=== PATIENT | female | born 1995 | race African-American/Black ===

== ENCOUNTER 2019-01-17 23:08 | Emergency (ER) | payer BC, MEDICAID ==
[2019-01-17] MEDS ORDERED: OXYCODONE-ACETAMINOPHEN 5-325 MG TABLET PO ONE (23:42)
[2019-01-17] MEDS ORDERED: METOCLOPRAMIDE HCL 10 MG TABLET PO ONE (23:42)
--- NOTE | 2019-01-17 23:46 | ER Document Report ---
ED Medical Screen (RME) - General Chief Complaint: Bloody Stools Stated Complaint: HEADACHE,NAUSEA,BLOOD IN STOOL Time Seen by Provider: 01/17/19 23:41 Primary Care Provider: MICHAEL MAHMOOD [Primary Care Provider] - Follow up as needed Notes: 23-year-old -[place] female with multiple symptoms. Recently arrived back home from [facility] where she was in [place]inclusive resort partaking of free alcohol. Complaining of headache, nausea, blood in her stool, stomach pain, frequent stools, blurred vision in the left eye. Patient reports history of GI ulcer secondary to H. pylori in the past. I have treated and performed a rapid initial assessment of this patient. A comprehensive ED assessment and evaluation of the patient, analysis of test results and completion of medical decision making process will be conducted by additional ED providers. PHYSICAL EXAMINATION: GENERAL: Nontoxic-appearing LUNGS: Breath sounds clear to auscultation bilaterally and equal. No wheezes rales or rhonchi. HEART: Regular rate and rhythm without murmurs, rubs, gallops. Extremities: No cyanosis, clubbing, or edema b/l. NEUROLOGICAL: Normal speech, normal gait. PSYCH: Normal mood, normal affect. TRAVEL OUTSIDE OF THE [place] IN LAST 30 DAYS: No Physical Exam - Vital signs Vitals: Temp Pulse Resp BP Pulse Ox 98.7 F 81 24 H 134/87 H 100 01/17/19 23:16 01/17/19 23:16 01/17/19 23:16 01/17/19 23:16 01/17/19 23:16 Course - Vital Signs Vital signs: Temp Pulse Resp BP Pulse Ox 98.7 F 81 24 H 134/87 H 100 01/17/19 23:16 01/17/19 23:16 01/17/19 23:16 01/17/19 23:16 01/17/19 23:16 Doctor's Discharge - Discharge Referrals: MICHAEL MAHMOOD [Primary Care Provider] - Follow up as needed
[2019-01-18 00:31] LABS: ABSOLUTE EOSINOPHILS # (AUTO) 0.2 10^3/uL (0.0-0.6); ABSOLUTE LYMPHOCYTES (AUTO) 1.6 10^3/uL (0.5-4.7); ABSOLUTE MONOCYTES (AUTO) 0.3 10^3/uL (0.1-1.4); ABSOLUTE NEUT (AUTO) 1.5 10^3/uL (1.7-8.2); BASOPHILS % (AUTO) 0.3 % (0-2); EOSINOPHILS % (AUTO) 5.2 % (0-6); HEMATOCRIT 40.6 % (36.0-47.0); HEMOGLOBIN 13.3 g/dL (12.0-15.5); LYMPHOCYTES % (AUTO) 44.8 % (13-45); MEAN CORPUSCULAR HEMOGLOBIN 29.7 pg (27.0-33.4); MEAN CORPUSCULAR HGB CONC 32.8 g/dL (32.0-36.0); MEAN CORPUSCULAR VOLUME 91 fl (80-97); MONOCYTES % (AUTO) 7.9 % (3-13); PLATELET COUNT 206 10^3/uL (150-450); RED BLOOD COUNT 4.47 10^6/uL (3.72-5.28); RED CELL DISTRIBUTION WIDTH 12.6 % (11.5-14.0); SEGMENTED NEUTROPHILS % (AUTO) 41.8 % (42-78); TOTAL CELLS COUNTED % (AUTO) 100 %; WHITE BLOOD COUNT 3.6 10^3/uL (4.0-10.5)
[2019-01-18 00:36] LABS: APPEARANCE,URINE CLEAR; BILIRUBIN,URINE NEGATIVE (NEGATIVE); COLOR,URINE COLORLESS; GLUCOSE, URINE NEGATIVE (NEGATIVE); KETONES,URINE NEGATIVE (NEGATIVE); LEUKOCYTE ESTERASE,URINE NEGATIVE (NEGATIVE); NITRITE,URINE NEGATIVE (NEGATIVE); PROTEIN,URINE NEGATIVE (NEGATIVE); URINE SPECIFIC GRAVITY 1.002; UROBILINOGEN,URINE NEGATIVE mg/dL (<2.0)
[2019-01-18 01:07] LABS: ALANINE AMINOTRANSFERASE 22 U/L (9-52); ALBUMIN 3.9 g/dL (3.5-5.0); ALKALINE PHOSPHATASE 51 U/L (38-126); ANION GAP 10 (5-19); ASPARTATE AMINO TRANSFERASE 22 U/L (14-36); BILIRUBIN,DIRECT 0.2 mg/dL (0.0-0.4); BILIRUBIN,TOTAL 0.2 mg/dL (0.2-1.3); BLOOD UREA NITROGEN 9 mg/dL (7-20); CALCIUM 9.2 mg/dL (8.4-10.2); CARBON DIOXIDE 26 mmol/L (22-30); CHLORIDE 104 mmol/L (98-107); GLUCOSE 114 mg/dL (75-110); LIPASE 55.4 U/L (23-300); POTASSIUM 4.1 mmol/L (3.6-5.0); SODIUM 139.5 mmol/L (137-145); TOTAL PROTEIN 7.1 g/dL (6.3-8.2)
[2019-01-18] MEDS ORDERED: ONDANSETRON ODT 4 MG TAB (6 TAB/ER DISP) PO PRN (02:40)
--- NOTE | 2019-01-18 02:41 | ER Document Report ---
ED General - General Chief Complaint: Bloody Stools Stated Complaint: HEADACHE,NAUSEA,BLOOD IN STOOL Time Seen by Provider: 01/17/19 23:41 Primary Care Provider: MICHAEL MAHMOOD [Primary Care Provider] - Follow up as needed Notes: Patient is a 23-year-old female without chronic medical problems, presents with 24 hours of diarrhea, and after multiple episodes of diarrhea had a small amount of bright red blood in her stool. The patient also reports that she is been somewhat nauseated, has had a global headache and some intermittent blurring of her vision as well as photophobia. Symptoms started gradually, have been relatively unchanged since onset. Lights worsen her headache and visual changes. Denies focal abdominal pain but states that she has had some generalized, aching, cramping discomfort. No history of similar symptoms in the past. Has not seen her general physician regarding today's concerns. Denies fever or constitutional symptoms. Denies focal weakness, numbness or confusion. TRAVEL OUTSIDE OF THE [place] IN LAST 30 DAYS: No - Related Data Allergies/Adverse Reactions: Penicillins Allergy (Verified 01/18/19 00:29) Past Medical History - General Information source: Patient - Social History Smoking Status: Never Smoker Frequency of alcohol use: Occasional Drug Abuse: None Lives with: Family Family History: Reviewed & Not Pertinent Patient has suicidal ideation: No Patient has homicidal ideation: No Renal/ Medical History: Denies: Hx Peritoneal Dialysis Review of Systems - Review of Systems Notes: Constitutional: Negative for fever. HENT: Negative for sore throat. Eyes: Positive for photophobia, blurring of vision Cardiovascular: Negative for chest pain. Respiratory: Negative for shortness of breath. Gastrointestinal: Positive for abdominal cramping, nausea, diarrhea, hematochezia Genitourinary: Negative for dysuria. Musculoskeletal: Negative for back pain. Skin: Negative for rash. Neurological: Positive for headache 10 point ROS negative except as marked above and in HPI. Physical Exam - Vital signs Vitals: Temp Pulse Resp BP Pulse Ox 98.7 F 81 24 H 134/87 H 100 01/17/19 23:16 01/17/19 23:16 01/17/19 23:16 01/17/19 23:16 01/17/19 23:16 Interpretation: Tachypneic Notes: PHYSICAL EXAMINATION: GENERAL: Well-appearing, well-nourished and in no acute distress. HEAD: Atraumatic, normocephalic. EYES: Pupils equal round and reactive to light, extraocular movements intact, sclera anicteric, conjunctiva are normal. ENT: nares patent, oropharynx clear without exudates. Moist mucous membranes. NECK: Normal range of motion, supple without lymphadenopathy LUNGS: Breath sounds clear to auscultation bilaterally and equal. No wheezes rales or rhonchi. HEART: Regular rate and rhythm without murmurs ABDOMEN: Soft, nontender, normoactive bowel sounds. No guarding, no rebound. No masses appreciated. EXTREMITIES: Normal range of motion, no pitting or edema. No cyanosis. NEUROLOGICAL: Face symmetric. Tongue protrudes midline. Extraocular motions intact. Pupils are 2 mm and equally reactive. Normal speech, normal gait. 5 out of 5 strength in both the distal and proximal upper and lower extremities bilaterally. Sensation is grossly intact throughout. Finger to nose testing normal. Pronator drift normal. PSYCH: Normal mood, normal affect. SKIN: Warm, Dry, normal turgor, no rashes or lesions noted. Course - Re-evaluation Re-evalutation: 01/18/19 02:40 Presentation of a headache that appears to be most consistent with tension versus migrainous type headache. Headache was not maximal in onset, patient has no focal neurologic deficits, no nuchal rigidity, vital signs within normal limits, no papilledema, and patient is overall well in appearance. Based on clinical history and examination I do not suspect an acute subarachnoid hemorrhage, dural venous sinus thrombosis, acute meningitis, or intercranial mass. Given my low clinical suspicion for any acute life-threatening etiology, I do not feel advanced neuro imaging is indicated. Patient did decline migraine cocktail stating that her headache had improved after receiving oral medications in triage. The patient was also having some diarrhea and did have trace amounts of blood in her stool after multiple diarrheal movements consistent with probable mucosal irritation from the amount of diarrhea. She has no focal abdominal tenderness on exam. No rebound or guarding. Do not suspect surgical pathology. Patient is overall well in appearance, vitals within normal limits, labs are reassuring. At this time will discharge with return precautions and follow-up recommendations. Verbal discharge instructions given a the bedside and opportunity for questions given. Medication warnings reviewed. Patient is in agreement with this plan and has verbalized understanding of return precautions and the need for primary care follow-up in the next 24-72 hours. - Vital Signs Vital signs: Temp Pulse Resp BP Pulse Ox 98.7 F 81 24 H 134/87 H 100 01/17/19 23:16 01/17/19 23:16 01/17/19 23:16 01/17/19 23:16 01/17/19 23:16 - Laboratory Result Diagrams: 01/18/19 00:05 01/18/19 00:05 Laboratory results interpreted by me: 01/18/19 01/18/19 01/18/19 00:05 00:05 00:05 WBC 3.6 L Seg Neutrophils % 41.8 L Absolute Neutrophils 1.5 L Glucose 114 H Urine Blood MODERATE H Discharge - Discharge Clinical Impression: Photophobia Diarrhea Qualifiers: Diarrhea type: unspecified type Qualified Code(s): R19.7 - Diarrhea, unspecified Headache Qualifiers: Headache type: unspecified Headache chronicity pattern: acute headache Intractability: not intractable Qualified Code(s): R51 - Headache Condition: Good Disposition: HOME, SELF-CARE Additional Instructions: You have been seen in the Emergency Department (ED) for a headache. Please use Tylenol (acetaminophen) or Motrin (ibuprofen) as needed for symptoms, but only as written on the box. As we have discussed, please follow up with your primary care doctor as soon as possible regarding today's ED visit and your headache symptoms. Call your doctor or return to the ED if you have a worsening headache, sudden and severe headache, confusion, slurred speech, facial droop, weakness or nu mbness in any arm or leg, extreme fatigue, or other symptoms that concern you. You can take [id number] loperamide also known as Imodium as needed for diarrhea per box instructions. Continue to stay hydrated with plenty of solution such as Gatorade or Pedialyte. You are being prescribed Zofran to take as needed for nausea and vomiting. Please return if you develop severe abdominal pain, pass out, become unable to tolerate any oral fluids for 12 more hours, or any other symptoms that are concerning to you. Referrals: LOCALMD,NO [Primary Care Provider] - Follow up as needed
[2019-01-18 03:01] VITALS: BP 134/74
== END 2019-01-18 02:58 | disposition home or self-care (01) ==
LOC: ER 23:08
DX: R19.7 Diarrhea, unspecified (principal); K92.1 Melena; R51 Headache; H53.149 Visual discomfort, unspecified; R11.0 Nausea; H53.8 Other visual disturbances; R10.84 Generalized abdominal pain; Z88.0 Allergy status to penicillin
CPT/HCPCS: 36415; 80053; 81001; 81025; 83690; 85025; 99284

== ENCOUNTER 2019-06-02 23:43 | Emergency (ER) | payer BC ==
[2019-06-03] MEDS ORDERED: NORMAL SALINE 1000 ML 1,000 ML IV ONE ×2 (00:15→02:42)
[2019-06-03 00:51] LABS: HEMATOCRIT 41.3 % (36.0-47.0); HEMOGLOBIN 13.6 g/dL (12.0-15.5); MEAN CORPUSCULAR HEMOGLOBIN 30.1 pg (27.0-33.4); MEAN CORPUSCULAR HGB CONC 33.1 g/dL (32.0-36.0); MEAN CORPUSCULAR VOLUME 91 fl (80-97); PLATELET COUNT 246 10^3/uL (150-450); RED BLOOD COUNT 4.54 10^6/uL (3.72-5.28); RED CELL DISTRIBUTION WIDTH 12.3 % (11.5-14.0); WHITE BLOOD COUNT 6.8 10^3/uL (4.0-10.5)
[2019-06-03 00:57] LABS: ALBUMIN 4.2 g/dL (3.5-5.0); ALKALINE PHOSPHATASE 59 U/L (38-126); ANION GAP 12 (5-19); ASPARTATE AMINO TRANSFERASE 26 U/L (14-36); BILIRUBIN,DIRECT 0.2 mg/dL (0.0-0.4); BILIRUBIN,TOTAL 0.4 mg/dL (0.2-1.3); BLOOD UREA NITROGEN 8 mg/dL (7-20); CALCIUM 9.4 mg/dL (8.4-10.2); CARBON DIOXIDE 22 mmol/L (22-30); CHLORIDE 108 mmol/L (98-107); CREATINE KINASE 97 U/L (30-135); GLUCOSE 154 mg/dL (75-110); POTASSIUM 3.7 mmol/L (3.6-5.0); TOTAL PROTEIN 7.6 g/dL (6.3-8.2)
[2019-06-03 01:18] LABS: ABSOLUTE LYMPHOCYTES# (MANUAL) 4.3 10^3/uL (0.5-4.7); ABSOLUTE MONOCYTES # (MANUAL) 0.5 10^3/uL (0.1-1.4); BASOPHILS % (MANUAL) 1 % (0-2); EOSINOPHILS % (MANUAL) 6 % (0-6); LYMPHOCYTES % (MANUAL) 54 % (13-45); MONOCYTES % (MANUAL) 7 % (3-13); SEGMENTED NEUTROPHILS % (MAN) 23 % (42-78); TOTAL CELLS COUNTED 100
[2019-06-03 01:21] LABS: BURR CELLS SLIGHT; CREATINE KINASE MB 0.32 ng/mL (<4.55); OVALOCYTES SLIGHT; PLATELET COMMENT ADEQUATE; POIKILOCYTOSIS SLIGHT
[2019-06-03 01:22] LABS: TROPONIN I < 0.012 ng/mL
[2019-06-03 01:26] LABS: APPEARANCE,URINE CLEAR; BILIRUBIN,URINE NEGATIVE (NEGATIVE); COLOR,URINE YELLOW; GLUCOSE, URINE NEGATIVE (NEGATIVE); KETONES,URINE NEGATIVE (NEGATIVE); LEUKOCYTE ESTERASE,URINE NEGATIVE (NEGATIVE); NITRITE,URINE NEGATIVE (NEGATIVE); PROTEIN,URINE NEGATIVE (NEGATIVE); URINE SPECIFIC GRAVITY 1.008; UROBILINOGEN,URINE NEGATIVE mg/dL (<2.0)
--- NOTE | 2019-06-03 01:38 | RADIOLOGY REPORT (SQ) ---
EXAM DESCRIPTION: [facility]: XR CHEST 2 VIEWS Views: 2 CLINICAL HISTORY: 24 years Female, SOB' COMPARISON: None. FINDINGS: The lungs are clear. No pneumothorax or significant pleural effusion. Cardiomediastinal silhouette is within normal limits. Bony structures are unremarkable for age. IMPRESSION: 1. No acute cardiothoracic abnormality.
[2019-06-03 01:41] LABS: URINE AMPHETAMINES SCREEN NEGATIVE; URINE BARBITURATES SCREEN NEGATIVE; URINE BENZODIAZEPINES SCREEN NEGATIVE; URINE COCAINE SCREEN NEGATIVE; URINE MARIJUANA (THC) SCREEN UNCONFIRMED POSITIVE; URINE METHADONE SCREEN NEGATIVE; URINE PHENCYCLIDINE SCREEN NEGATIVE
--- NOTE | 2019-06-03 04:13 | ER Document Report ---
ED General - General Chief Complaint: Arrhythmia Stated Complaint: IRREGULAR HEART RATE,LEGS SHAKY Time Seen by Provider: 06/03/19 00:14 Primary Care Provider: AMOL ARIAS MD [ACTIVE STAFF] - Follow up as needed VIJAY CANTU MD [ACTIVE STAFF] - Follow up as needed Notes: Patient is a 24-year-old female presents to the emergency department for "feeling my heartbeat fast." Patient voices she does have a history of asthma but is denying any respiratory distress. She is denying any recent use of albuterol. States she does take control on a daily basis. States she can feel her heart beating in her neck. States she also feels "jittery." Patient's denying any chest pain or shortness of breath. Once patient's mother has left the room she does admit to taking a marijuana gummy earlier this evening. States she has smokes marijuana in the past but is denying use of marijuana gummies. Patient is denying the use of any other substances, states she did have one alcoholic beverage this evening states that was "a lot earlier." Patient voices she has seen her DEVELOPMENT SPEC multiple times for vaginal discharge recently. States she has used an [id number]-[id number] cream for vaginal discharge. States her DEVELOPMENT SPEC has stated this discharge is most likely due to the control she is on. Patient voices she has been tested for sexually transmitted diseases as well as yeast and bacterial vaginosis. States the first time she used this [id number]-[id number]-[id number] cream was this evening. States she is unsure if this is related to her increase in heart rate. TRAVEL OUTSIDE OF THE [place] IN LAST 30 DAYS: No - Related Data Allergies/Adverse Reactions: Fish Containing Products Allergy (Severe, Verified 06/03/19 00:27) peanut Allergy (Severe, Verified 06/03/19 00:27) orange juice Allergy (Verified 06/03/19 00:27) Penicillins Allergy (Verified 01/18/19 00:29) Past Medical History - General Information source: Patient - Social History Smoking Status: Never Smoker Frequency of alcohol use: Social Drug Abuse: Marijuana Family History: Reviewed & Not Pertinent Patient has suicidal ideation: No Patient has homicidal ideation: No Renal/ Medical History: Denies: Hx Peritoneal Dialysis Review of Systems - Review of Systems Constitutional: denies: Fever EENT: No symptoms reported Cardiovascular: See HPI Respiratory: See HPI Gastrointestinal: No symptoms reported Genitourinary: No symptoms reported Female Genitourinary: No symptoms reported Musculoskeletal: No symptoms reported Skin: No symptoms reported Hematologic/Lymphatic: No symptoms reported Neurological/Psychological: No symptoms reported Physical Exam - Vital signs Vitals: Temp Pulse Resp BP Pulse Ox 97.8 F 180 H 22 H 156/100 H 100 06/02/19 23:49 06/02/19 23:49 06/02/19 23:49 06/02/19 23:49 06/02/19 23:49 - Notes Notes: GENERAL: Alert, interacts well. No acute distress. HEAD: Normocephalic, atraumatic. EYES: Pupils equal, round, and reactive to light. Extraocular movements intact. ENT: Oral mucosa moist, tongue midline. NECK: Full range of motion. Supple. Trachea midline. LUNGS: Clear to auscultation bilaterally, no wheezes, rales, or rhonchi. No respiratory distress. HEART: Tachycardic rate and rhythm. No murmur ABDOMEN: Soft, non-tender. Non-distended. Bowel sounds present in all 4 quadrants. EXTREMITIES: Moves all 4 extremities spontaneously. No edema, normal radial and dorsalis pedis pulses bilaterally. No cyanosis. BACK: no cervical, thoracic, lumbar midline tenderness. No saddle anesthesia, normal distal neurovascular exam. NEUROLOGICAL: Alert and oriented x3. Normal speech. cranial nerves II through XII grossly intact. PSYCH: Normal affect, normal mood. SKIN: Warm, dry, normal turgor. No rashes or lesions noted. Course - Re-evaluation Re-evalutation: EKG shows sinus tachycardia rate 154, QTc 436, no ST segment elevations or depressions noted. Patient was initially given a liter of fluid and her heart rate came down to the 1-teens. She is unable to provide a urine sample. Another liter of fluid was given and patient's heart rate came down to around 92. Patient voices she no longer feels jittery and overall "feels so much better." I discussed with patient doing a pelvic exam to potentially give her answers to this vaginal discharge. Patient voices she has had multiple pelvic exam with testing with her DEVELOPMENT SPEC states her DEVELOPMENT SPEC told her the vaginal discharge was "normal" because of the control. Patient is declining pelvic exam at this time. I have also discussed with patient at bedside this interaction is potentially due to the marijuana that the patient consumed. Discussed stopping use of marijuana. Also discussed close follow-up with primary care provider and cardiology. Patient stable for discharge. Laboratory 06/03/19 06/03/19 06/03/19 00:10 00:25 00:25 WBC 6.8 RBC 4.54 Hgb 13.6 Hct 41.3 MCV 91 MCH 30.1 MCHC 33.1 RDW 12.3 Plt Count 246 Lymph % (Auto) Not Reportable [place] % (Auto) Not Reportable Eos % (Auto) Not Reportable Baso % (Auto) Not Reportable Absolute Neuts (auto) Not Reportable Absolute Lymphs (auto) Not Reportable Absolute Monos (auto) Not Reportable Absolute Eos (auto) Not Reportable Absolute Basos (auto) Not Reportable Total Counted 100 Seg Neutrophils % Not Reportable Seg Neuts % (Manual) 23 L Lymphocytes % (Manual) 54 H Atypical Lymphs % 9 Monocytes % (Manual) 7 Eosinophils % (Manual) 6 Basophils % (Manual) 1 Abs Neuts (Manual) 1.6 L Abs Lymphs (Manual) 4.3 Abs Monocytes (Manual) 0.5 Absolute Eos (Manual) 0.4 Abs Basophils (Manual) 0.1 Platelet Comment ADEQUATE Poikilocytosis SLIGHT Ovalocytes SLIGHT [place] Cells SLIGHT Sodium 142.2 Potassium 3.7 Chloride 108 H Carbon Dioxide 22 Anion Gap 12 BUN 8 Creatinine 0.85 Est GFR ( Amer) > 60 Est GFR (MDRD) Non-Af > 60 Glucose 154 H POC Glucose 105 Calcium 9.4 Magnesium Total Bilirubin 0.4 Direct Bilirubin 0.2 Neonat Total Bilirubin Not Reportable Neonat Direct Bilirubin Not Reportable Neonat Indirect Bili Not Reportable AST 26 ALT 24 Alkaline Phosphatase 59 Creatine Kinase 97 CK-MB (CK-2) Troponin I Total Protein 7.6 Albumin 4.2 Serum HCG, Qual Urine Color Urine Appearance Urine pH Ur Specific Girard Urine Protein Urine Glucose (UA) Urine Ketones Urine Blood Urine Nitrite Urine Bilirubin Urine Urobilinogen Ur Leukocyte Esterase Urine WBC (Auto) Urine RBC (Auto) U Hyaline Cast (Auto) Squamous Epi Cells Auto Urine Mucus (Auto) Urine Ascorbic Acid Urine Opiates Screen Urine Methadone Screen Ur Barbiturates Screen Ur Phencyclidine Scrn Ur Amphetamines Screen U Benzodiazepines Scrn Urine Cocaine Screen U Marijuana (THC) Screen 06/03/19 06/03/19 06/03/19 00:25 00:25 00:25 WBC RBC Hgb Hct MCV MCH MCHC RDW Plt Count Lymph % (Auto) [place] % (Auto) Eos % (Auto) Baso % (Auto) Absolute Neuts (auto) Absolute Lymphs (auto) Absolute Monos (auto) Absolute Eos (auto) Absolute Basos (auto) Total Counted Seg Neutrophils % Seg Neuts % (Manual) Lymphocytes % (Manual) Atypical Lymphs % Monocytes % (Manual) Eosinophils % (Manual) Basophils % (Manual) Abs Neuts (Manual) Abs Lymphs (Manual) Abs Monocytes (Manual) Absolute Eos (Manual) Abs Basophils (Manual) Platelet Comment Poikilocytosis Ovalocytes [place]chor Cells Sodium Potassium Chloride Carbon Dioxide Anion Gap BUN Creatinine Est GFR ( Amer) Est GFR (MDRD) Non-Af Glucose POC Glucose Calcium Magnesium 1.8 Total Bilirubin Direct Bilirubin Neonat Total Bilirubin Neonat Direct Bilirubin Neonat Indirect Bili AST ALT Alkaline Phosphatase Creatine Kinase CK-MB (CK-2) 0.32 Troponin I < 0.012 Total Protein Albumin Serum HCG, Qual NEGATIVE Urine Color Urine Appearance Urine pH Ur Specific Girard Urine Protein Urine Glucose (UA) Urine Ketones Urine Blood Urine Nitrite Urine Bilirubin Urine Urobilinogen Ur Leukocyte Esterase Urine WBC (Auto) Urine RBC (Auto) U Hyaline Cast (Auto) Squamous Epi Cells Auto Urine Mucus (Auto) Urine Ascorbic Acid Urine Opiates Screen Urine Methadone Screen Ur Barbiturates Screen Ur Phencyclidine Scrn Ur Amphetamines Screen U Benzodiazepines Scrn Urine Cocaine Screen U Marijuana (THC) Screen 06/03/19 06/03/19 01:10 01:10 WBC RBC Hgb Hct MCV MCH MCHC RDW Plt Count Lymph % (Auto) [place] % (Auto) Eos % (Auto) Baso % (Auto) Absolute Neuts (auto) Absolute Lymphs (auto) Absolute Monos (auto) Absolute Eos (auto) Absolute Basos (auto) Total Counted Seg Neutrophils % Seg Neuts % (Manual) Lymphocytes % (Manual) Atypical Lymphs % Monocytes % (Manual) Eosinophils % (Manual) Basophils % (Manual) Abs Neuts (Manual) Abs Lymphs (Manual) Abs Monocytes (Manual) Absolute Eos (Manual) Abs Basophils (Manual) Platelet Comment Poikilocytosis Ovalocytes Melchor Cells Sodium Potassium Chloride Carbon Dioxide Anion Gap BUN Creatinine Est GFR ( Amer) Est GFR (MDRD) Non-Af Glucose POC Glucose Calcium Magnesium Total Bilirubin Direct Bilirubin Neonat Total Bilirubin Neonat Direct Bilirubin Neonat Indirect Bili AST ALT Alkaline Phosphatase Creatine Kinase CK-MB (CK-2) Troponin I Total Protein Albumin Serum HCG, Qual Urine Color YELLOW Urine Appearance CLEAR Urine pH 7.0 Ur Specific Girard 1.008 Urine Protein NEGATIVE Urine Glucose (UA) NEGATIVE Urine Ketones NEGATIVE Urine Blood NEGATIVE Urine Nitrite NEGATIVE Urine Bilirubin NEGATIVE Urine Urobilinogen NEGATIVE Ur Leukocyte Esterase NEGATIVE Urine WBC (Auto) 1 Urine RBC (Auto) 1 U Hyaline Cast (Auto) 8 Squamous Epi Cells Auto <1 Urine Mucus (Auto) FEW Urine Ascorbic Acid NEGATIVE Urine Opiates Screen NEGATIVE Urine Methadone Screen NEGATIVE Ur Barbiturates Screen NEGATIVE Ur Phencyclidine Scrn NEGATIVE Ur Amphetamines Screen NEGATIVE U Benzodiazepines Scrn NEGATIVE Urine Cocaine Screen NEGATIVE U Marijuana (THC) Screen UNCONFIRMED POSITIVE Chest X-Ray 06/03/19 00:15 IMPRESSION: 1. No acute cardiothoracic abnormality. - Vital Signs Vital signs: Temp Pulse Resp BP Pulse Ox 98.3 F 92 23 H 154/90 H 100 06/03/19 02:38 06/03/19 03:26 06/03/19 04:01 06/03/19 04:01 06/03/19 04:01 - Laboratory Result Diagrams: 06/03/19 00:25 06/03/19 00:25 Laboratory results interpreted by me: 06/03/19 06/03/19 00:25 00:25 Seg Neuts % (Manual) 23 L Lymphocytes % (Manual) 54 H Abs Neuts (Manual) 1.6 L Chloride 108 H Glucose 154 H Discharge - Discharge Clinical Impression: Tachycardia, Marijuana use Condition: Stable Disposition: HOME, SELF-CARE Instructions: Sinus Tachycardia ([facility]) Additional Instructions: As we discussed you have been seen and treated in the emergency department for your elevated heart rate. Your laboratory testing is coming back to normal. Please follow-up with your primary care provider in the next 12-24 hours and cardiology. Phone numbers will be provided in this packet. Please return to the emergency department for any concerns. Forms: Return to Work Referrals: VIJAY CANTU MD [ACTIVE STAFF] - Follow up as needed AMOL ARIAS MD [ACTIVE STAFF] - Follow up as needed
[2019-06-03 04:16] VITALS: BP 154/90
--- NOTE | 2019-06-03 09:52 | EKG REPORT ---
SEVERITY:- OTHERWISE NORMAL ECG - SINUS TACHYCARDIA ATRIAL PREMATURE COMPLEX : Confirmed by: Gabbie Orantes MD 03-Jun-2019 09:52:01
== END 2019-06-03 04:21 | disposition home or self-care (01) ==
LOC: ER 23:43
DX: R00.0 Tachycardia, unspecified (principal); F12.90 Cannabis use, unspecified, uncomplicated; J45.909 Unspecified asthma, uncomplicated
CPT/HCPCS: 93005; 36415; 82553; 82962; 82550; 83735; 84703; 85025; 80053; 81001; 84484; 80307; 71046; 93010; J7030

== ENCOUNTER → 2019-06-09 | Outpatient (CLI) | payer BC ==
[2019-06-09 15:55] LABS: FREE T3 4.18 pg/mL (2.77-5.27); FREE T4 (FREE THYROXINE) 0.86 ng/dL (0.78-2.19)
[2019-06-09 16:09] LABS: THYROID STIMULATING HORMONE 1.99 uIU/mL (0.47-4.68)
== END ==
LOC: OD 14:25
PROVIDERS: ATTEND Specialist
DX: R07.9 Chest pain, unspecified (principal); R01.1 Cardiac murmur, unspecified; R00.2 Palpitations; R06.00 Dyspnea, unspecified; R00.0 Tachycardia, unspecified; E78.5 Hyperlipidemia, unspecified; Z79.899 Other long term (current) drug therapy
CPT/HCPCS: 36415; 84439; 84443; 84481

== ENCOUNTER 2019-09-27 22:46 | Emergency (ER) | payer BC ==
[2019-09-27] MEDS ORDERED: MAG HYDROX/AL HYDROX/SIMETH SUSP 30 ML UDCUP PO ONE (23:30)
[2019-09-27] MEDS ORDERED: LIDOCAINE 2% VISCOUS SOLN 15 ML UDCUP PO ONE (23:30)
--- NOTE | 2019-09-27 23:32 | ER Document Report ---
ED Medical Screen (RME) - General Chief Complaint: Breathing Difficulty Stated Complaint: DIFFICULTY BREATHING Time Seen by Provider: 09/27/19 23:27 Primary Care Provider: VIJAY CANTU MD [Primary Care Provider] - Follow up as needed TRAVEL OUTSIDE OF THE [place] IN LAST 30 DAYS: No - HPI Notes: 09/27/19 23:31 Patient is a 24-year-old female who had a partial nephrectomy performed this past Friday and was intubated at the time presents complaining of having an irritation in her upper airway that is been present today. Patient states that she cannot clear it or get rid of it. No fever, URI symptoms, chest pain, shortness of breath, abdominal pain. I have treated and performed a rapid initial assessment of this patient. A comprehensive ED assessment and evaluation of the patient, analysis of test results and completion of medical decision making process will be conducted by additional ED providers. PHYSICAL EXAMINATION: GENERAL: Well-appearing, well-nourished and in no acute distress. A&Ox4. Answers questions appropriately. Lungs: CTAB Throat: Oropharynx is clear. No significant hypertrophy or airway compromise. - Related Data Allergies/Adverse Reactions: Fish Containing Products Allergy (Severe, Verified 06/03/19 00:27) peanut Allergy (Severe, Verified 06/03/19 00:27) amoxicillin Allergy (Verified 09/27/19 23:20) orange juice Allergy (Verified 06/03/19 00:27) Penicillins Allergy (Verified 01/18/19 00:29) Past Medical History Renal/ Medical History: Denies: Hx Peritoneal Dialysis Physical Exam - Vital signs Vitals: Temp Pulse Resp BP Pulse Ox 98.7 F 115 H 18 142/86 H 100 09/27/19 22:57 09/27/19 22:57 09/27/19 22:57 09/27/19 22:57 09/27/19 22:57 Course - Vital Signs Vital signs: Temp Pulse Resp BP Pulse Ox 98.7 F 115 H 18 142/86 H 100 09/27/19 22:57 09/27/19 22:57 09/27/19 22:57 09/27/19 22:57 09/27/19 22:57 Doctor's Discharge - Discharge Referrals: VIJAY CANTU MD [Primary Care Provider] - Follow up as needed
--- NOTE | 2019-09-28 02:16 | ER Document Report ---
Entered by FORD MARTIN SCRIBE 09/28/19 0124 Acting as scribe for:HIPOLITO CARUSO DO ED General - General Chief Complaint: Difficulty Swallowing Stated Complaint: DIFFICULTY BREATHING Time Seen by Provider: 09/27/19 23:27 Primary Care Provider: VIJAY CANTU MD [ACTIVE STAFF] - Follow up as needed Mode of Arrival: Ambulatory Information source: Patient Notes: This 24 year old female patient with a history of asthma with inhaler use prn and recent partial nephrectomy on 09/24/19 presents to the ED today with complaints of throat pain with associated difficultly swallowing and dyspnea. Patient states that she had a choking sensation while she was eating joann earlier today. Patient notes that she had rings placed in her esophagus x3 years ago by a farm equipment operator to stretch it due to stricture. Patient states that she was under general anaesthesia and intubated during the procedure at [facility]. Patient notes that her follow up with the surgeon is on 09/29/19. Patient states that she also noticed ankle swelling after she was put on Cardizem. TRAVEL OUTSIDE OF THE [place] IN LAST 30 DAYS: No - Related Data Allergies/Adverse Reactions: Fish Containing Products Allergy (Severe, Verified 06/03/19 00:27) peanut Allergy (Severe, Verified 06/03/19 00:27) amoxicillin Allergy (Verified 09/27/19 23:20) orange juice Allergy (Verified 06/03/19 00:27) Penicillins Allergy (Verified 01/18/19 00:29) Home Medications: Cardizem 30mg TID. Tramadol 50mg TID. 600mg Motrin Past Medical History - General Information source: Patient - Social History Smoking Status: Never Smoker Cigarette use (# per day): No Chew tobacco use (# tins/day): No Smoking Education Provided: No Family History: Reviewed & Not Pertinent Patient has suicidal ideation: No Patient has homicidal ideation: No Pulmonary Medical History: Reports: Hx Asthma Past Surgical History: Reports: Hx Kidney (Renal Surgery) - Partial nephrectomy d/t cyst on 09/24/2019 Review of Systems - Review of Systems Constitutional: No symptoms reported EENT: See HPI, Throat pain, Difficulty swallowing Cardiovascular: See HPI, Dyspnea Respiratory: No symptoms reported Gastrointestinal: No symptoms reported Genitourinary: No symptoms reported Female Genitourinary: See HPI, Last menstrual period - 09/13/19 Musculoskeletal: See HPI, Ankle swelling Skin: See HPI. denies: Rash Hematologic/Lymphatic: No symptoms reported Neurological/Psychological: No symptoms reported -: Yes All other systems reviewed and negative Physical Exam - Vital signs Vitals: Temp Pulse Resp BP Pulse Ox 98.7 F 115 H 18 142/86 H 100 09/27/19 22:57 09/27/19 22:57 09/27/19 22:57 09/27/19 22:57 09/27/19 22:57 - General General appearance: Appears well, Alert In distress: None - HEENT Head: Normocephalic, Atraumatic Eyes: Normal Pupils: PERRL Neck: Lymphadenopathy - Anterior; right sided - Respiratory Respiratory status: No respiratory distress Chest status: Nontender Breath sounds: Normal Chest palpation: Normal - Cardiovascular Rhythm: Regular Heart sounds: Normal auscultation Murmur: No - Abdominal Inspection: Normal Distension: No distension Bowel sounds: Normal Tenderness: Nontender - Abdomen soft Organomegaly: No organomegaly - Back Back: Normal, Nontender - Extremities General upper extremity: Normal inspection General lower extremity: Normal inspection - Neurological Neuro grossly intact: Yes - Psychological Associated symptoms: Normal affect, Normal mood - Skin Skin Temperature: Warm Skin Moisture: Dry Skin Color: Normal Course - Re-evaluation Re-evalutation: 09/28/19 02:18 MDM 24 year old female with h/o esophageal stricture - s/p procedure at [facility] a few years back where their were rings placed to dialate esophagus is s/p partial nephrectomy at [facility] the other day for cyst on kidney. She feels irritation in her throat. Transiently better after lidocaine in triage. She can tolerates fluids easily and no appetite since surgery till tonight. Irritation came after eating a joann which she has eaten previously without difficulty. Asthma history. Clear lungs here and no wheeze. Airway widely patent. Will treat with carafate liquid, modify diet and resist rx for steroid due to potential effect on wound healing. Discussed with pt and mom and follow up with [facility] is tomorrow. She will keep this appointment. We discussed return precautions. - Vital Signs Vital signs: Temp Pulse Resp BP Pulse Ox 98.4 F 88 16 120/68 100 09/28/19 03:43 09/28/19 03:43 09/28/19 03:43 09/28/19 03:43 09/28/19 03:43 - Diagnostic Test Radiology reviewed: Image reviewed, Reports reviewed Discharge - Discharge Clinical Impression: Difficulty swallowing solids Condition: Good Disposition: HOME, SELF-CARE Instructions: Acid-Suppressing Medication ([facility]), Antacid Therapy ([facility]), Clear Liquid Diet ([facility]), Sucralfate ([facility]) Additional Instructions: Liquids for 24 hours and medicine as directed and then advance diet as tolerated. Please return here for any problems or any concerns. Prescriptions: Sucralfate [Carafate Susp 1 Gm/10 Ml Udcup] 1 gm PO TID 7 Days #1 bottle Forms: Return to School Referrals: VIJAY CANTU MD [ACTIVE STAFF] - Follow up as needed I personally performed the services described in the documentation, reviewed and edited the documentation which was dictated to the scribe in my presence, and it accurately records my words and actions.
--- NOTE | 2019-09-28 02:24 | RADIOLOGY REPORT (SQ) ---
EXAM DESCRIPTION: XR CHEST 2 VIEWS COMPLETED DATE/TME: 09/28/2019 01:35 CLINICAL HISTORY: 24 years, Female, dif swallowing/ cough COMPARISON: None. NUMBER OF VIEWS: 2 TECHNIQUE: LIMITATIONS: None. FINDINGS: Cardiomediastinal silhouette is normal. Subtle interstitial prominence. No focal airspace disease. No effusion. No pneumothorax IMPRESSION: Subtle diffuse interstitial prominence. No focal airspace disease copyright 2010 [employer]- All Rights Reserved
[2019-09-28 03:45] VITALS: BP 120/68
== END 2019-09-28 02:32 | disposition home or self-care (01) ==
LOC: ER 22:46
DX: R13.10 Dysphagia, unspecified (principal); Z88.0 Allergy status to penicillin; Z91.010 Allergy to peanuts; Z90.5 Acquired absence of kidney
CPT/HCPCS: 87070; 87880; 71046; J3490; 99284